=== PATIENT | female | born 1975 | race Hispanic/Latino ===

== ENCOUNTER 2017-10-26 05:51 | Day surgery (SDC) | payer MEDICAID ==
[~2017-10-26 05:51] MED LIST: ANCEF/STERILE WATER 2 GM/20 ML IV NR
[2017-10-26] MEDS ORDERED: NACL BACTERIOSTATIC INFILTRATI ONE (07:00)
--- NOTE | 2017-10-26 07:14 | Anesthesia Consultation ---
Anesthesia Consult and Med Hx Date of service: 10/26/17 - Airway Anesthetic Teeth Evaluation: Poor, Chipped ROM Head & Neck: Adequate Mental/Hyoid Distance: Adequate Mallampati Class: Class II Intubation Access Assessment: Probably Good - Pulmonary Exam CTA: Yes - Cardiac Exam Cardiac Exam: RRR - Pre-Operative Health Status ASA Pre-Surgery Classification: ASA3 Proposed Anesthetic Plan: General - Pulmonary Hx Smoking: Yes (1/2PPD SINCE 1990) Hx Sleep Apnea: No (GUSTAVO PRE SCREEN LOW RISK.) - Cardiovascular System Hx Hypertension: No Hx Cardia Arrhythmia: No - Central Nervous System Hx Back Pain: Yes Hx Psychiatric Problems: Yes (Depression) - Gastrointestinal Hx Gastroesophageal Reflux Disease: Yes (Occasional) - Other Systems Hx Cancer: No
[2017-10-26] MEDS ORDERED: DECADRON IV NR (07:20)
[2017-10-26] MEDS ORDERED: DILAUDID ONE (07:24)
[2017-10-26] MEDS ORDERED: XYLOCAINE MPF 2% ONE (07:24)
[2017-10-26] MEDS ORDERED: DIPRIVAN 10 MG/ML IV ONE (07:25)
[2017-10-26] MEDS ORDERED: REGLAN IV NR (08:00)
[2017-10-26] MEDS ORDERED: NACL 0.9% 1000 ML 1,000 ML IV SCH (08:00)
[2017-10-26] MEDS ORDERED: VERSED IV NR (08:00)
[2017-10-26] MEDS ORDERED: ZOFRAN ONE (08:26)
[2017-10-26] MEDS ORDERED: OMNIPAQUE (300 MG) IR ONE (08:28)
[2017-10-26] MEDS ORDERED: WATER FOR IRRIG STERILE IR ONE ×2 (08:28)
--- NOTE | 2017-10-26 08:55 | Short Stay Summary ---
Short Stay Documentation Date of service: 10/26/17 - History H&P: obtained from office - Allergies and Medications Current Medications: Allergies No Known Allergies Allergy (Verified 10/22/17 10:44) Home Medications Medication Instructions Recorded Confirmed Last Taken Type HYDROcodone/APAP 5-325 [[place] 1 each PO Q6HR PRN #30 tablet 02/05/16 10/22/17 Unknown Rx 5/325] Ondansetron [Zofran TAB] 4 mg PO Q8HR PRN 10/22/17 10/22/17 Unknown History Tamsulosin [Flomax] 0.4 mg PO QDAY 10/22/17 10/26/17 1 Week Ago History ~10/19/17 Oxycodone HCl/Acetaminophen 1 each PO Q6HR PRN 10/26/17 10/26/17 10/25/17 History [Percocet 10/325 mg] Active Medications Cefazolin Sodium (Ancef/Sterile Water 2 Gm/20 Ml) 2 gm IV PREOP NR Stop: 10/26/17 23:00 Dexamethasone (Decadron) 4 mg IV PREOP NR Stop: 10/26/17 11:00 Last Admin: 10/26/17 07:39 Dose: 4 mg Sodium Chloride (Nacl 0.9% 1000 Ml) 1,000 mls @ 42 mls/hr IV DIRECT JUSTIN Last Admin: 10/26/17 07:35 Dose: 42 mls/hr Metoclopramide HCl (Reglan) 10 mg IV PREOP NR Stop: 10/26/17 11:00 Last Admin: 10/26/17 07:37 Dose: 10 mg Midazolam HCl (Versed) 2 mg IV PREOP NR Stop: 10/26/17 23:59 Last Admin: 10/26/17 07:41 Dose: 2 mg - Brief post op/procedure progress note Date of procedure: 10/26/17 Pre-op diagnosis: rt ureteral stone Post-op diagnosis: same Procedure: cysto, rpg, right ureteroscopy, stent with external string Anesthesia: NIKHIL Surgeon: ABAD ROBERSON Estimated blood loss: none Condition: stable - Hospital course Hospital course: norco,cipro, & post op info on chart - Disposition Condition at discharge: Stable Disposition: [id number] TO HOME OR SELFCARE Short Stay Discharge Plan Follow up with: SHENA GOODMAN MD [Primary Care Provider] - 7 Days
[2017-10-26] MEDS ORDERED: NORCO 5/325 PO PRN (09:29)
[2017-10-26] MEDS ORDERED: NORCO 5/325 ONE (09:34)
[2017-10-26 09:37] VITALS: BP 116/61
[2017-10-26] MEDS ORDERED: ZOFRAN IV PRN (09:44)
[2017-10-26] MEDS ORDERED: SUBLIMAZE IV PRN (09:44)
--- NOTE | 2017-10-26 09:44 | Post Anesthesia Evaluation ---
- Post Anesthesia Evaluation Patient Participated: Yes Airway Patent: Yes Stable Respiratory Function: Yes Nausea/Vomiting: No Temp > 96.8F: Yes Pain Manageable: Yes Adequeate Hydration: Yes Anesthesia Complications: No
--- NOTE | 2017-10-26 09:44 | Anesthesia Day of Surgery ---
Anesthesia Day of Surgery - Day of Surgery Patient Examined: Yes Patient H&P Reviewed: Yes Patient is NPO: Yes Beta Blockers: Yes Cardiac Clearance: Yes Pulmonary Clearance: Yes
--- NOTE | 2017-10-26 10:06 | Operative Report ---
PREOPERATIVE DIAGNOSIS: Right distal stone (3 mm) POSTOPERATIVE DIAGNOSIS: Right distal stone (3 mm). PROCEDURE: Cystoscopy, bilateral retrograde pyelograms, right ureteroscopy, double-J stent placement (6 [place] 24 cm with an external string). SURGEON: Jerry Monk MD ANESTHESIA: General. ESTIMATED BLOOD LOSS: Minimal. FLUIDS: Crystalloid. COMPLICATIONS: No complications. INDICATIONS: This patient is a 42-year-old female seen in the office for right flank pain. CT of abdomen and pelvis at [facility] revealed a 3 mm distal stone. She has a family history of stones as well. Initially, we discussed conservative treatment. However, her pain persists. She presents now for surgical intervention. She has a history of removal of ovarian cyst as well. DESCRIPTION OF PROCEDURE: The patient was taken to the operative suite, placed in a supine position. After adequate general anesthesia, placed in a dorsal lithotomy position, prepped and draped in a sterile fashion. Pancystourethroscopy was performed with a 22-[place]ian Storz cystoscope. No bladder pathology. Both ureteral orifices in normal position. Bilateral retrograde pyelograms were obtained with an 8 [place] Shayla catheter and 8 mL of contrast. No filling defects or obstruction on the left. There was some distal narrowing on the right side, prompting further evaluation. Two 0.035 Glidewires were placed. Rigid ureteroscopy was performed up to the renal pelvis. There were some small fragments of stone particles that could be appreciated. They were too small to be retrieved with the basket. Ureteroscopy to the ureteropelvic junction, no significant stone burden could be appreciated. The scope was removed. A 6-[place] 24 cm stent was placed under fluoroscopy with an external string. Her bladder was drained. She was extubated and taken to recovery room. She will go home on [employer] and follow up in the office. JOB# [id number] [facility]
--- NOTE | 2017-10-26 10:23 | Fluoroscopy Report ---
RETROGRADE PYELOGRAM: History: Right ureteral stone. Findings: Fluoroscopy was provided by radiology during retrograde urography by urology. 9 fluoroscopic images were captured by Dr. Monk. There is adequate filling of the ureters and intrarenal collecting systems with no filling defects or anatomic abnormalities identified. The last images demonstrate placement of a right ureteral stent which is in good position on the final image. Impression: Right ureteral stent placement.
== END 2017-10-26 10:40 | disposition home or self-care (01) ==
LOC: OR 05:51
PROVIDERS: ATTEND Urology
DX: I10 Essential (primary) hypertension (principal); N20.0 Calculus of kidney; K21.9 Gastro-esophageal reflux disease without esophagitis; F32.9 Major depressive disorder, single episode, unspecified; F17.210 Nicotine dependence, cigarettes, uncomplicated; Z79.899 Other long term (current) drug therapy
CPT/HCPCS: 52332; 74420; 81025; A4217; C1758; C1769; C2617; J0690; J1100; J1170; J2250; J2405; J2704; J2765; J7030; Q9967

== ENCOUNTER 2017-10-28 19:33 | Inpatient (IN) | payer MEDICAID ==
[2017-10-28] MEDS ORDERED: NACL 0.9% 500 ML 500 ML IV ONE (19:48)
[2017-10-28 20:28] LABS: Hematocrit 42.2 % (30.3-42.9); Mean Corpuscular HGB Conc 33 % (30-34); Mean Corpuscular Hemoglobin 31 pg (28-32); Mean Corpuscular Volume 92 fl (79-97); Platelet Count 270 K/mm3 (140-440); Red Blood Count 4.57 M/mm3 (3.65-5.03); Red Cell Distribution Width 12.8 % (13.2-15.2)
[2017-10-28 20:40] LABS: INR 0.95 (0.87-1.13)
[2017-10-28 20:48] LABS: Alanine Aminotransferase 7 units/L (7-56); Albumin 4.4 g/dL (3.9-5); BUN/Creatinine Ratio 13; Blood Urea Nitrogen 10 mg/dL (7-17); Calcium 9.1 mg/dL (8.4-10.2); Hemolysis Index 2
[2017-10-28 20:59] LABS: Anisocytosis 1+; Basophils % (Manual) 0 % (0.0-1.8); Total Cells Counted 100
[2017-10-28] MEDS ORDERED: TORADOL IV ONE (21:19)
[2017-10-28] MEDS ORDERED: TYLENOL PO ONE (21:19)
[2017-10-28] MEDS ORDERED: DILAUDID IV ONE (21:22)
[2017-10-28] MEDS ORDERED: ZOFRAN IV ONE (21:22)
--- NOTE | 2017-10-28 21:28 | XRay Report ---
FINAL REPORT PROCEDURE: XR CHEST 1V AP TECHNIQUE: Chest radiograph anteroposterior view. CPT 78710 HISTORY: possible Sepsis COMPARISON: No prior studies are available for comparison. FINDINGS: Heart: Normal. Mediastinum/Vessels: Normal. Lungs/Pleural space: Normal. Bony thorax: No acute osseous abnormality. Life support devices: None. IMPRESSION: No acute cardiopulmonary abnormality.
--- NOTE | 2017-10-28 21:37 | Emergency Department Report ---
ED Fever HPI - General Chief Complaint: Fever Stated Complaint: FEVER AFTER SURGERY Time Seen by Provider: 10/28/17 21:16 Source: patient Exam Limitations: no limitations - History of Present Illness Initial Comments: 42 yo female with a past with a history of kidney stones and status post uroscopy with double J stent placement on the right side due to kidney stone on October 26 presents to the hospital with fever started at 6 PM. Patient was discharged on a cardiac pain medicine and ciprofloxacin. She had one episode of vomiting today. She continues to have a/10 right sided abdominal and flank pain as constant, with palpation, and minimally improved with meds. Patient is urinating normally and denies dysuria. Positive persistent hematuria. Urologist Dr. Monk Timing/Duration: this evening Fever Severity/Quality: low grade Fever Therapy [employer]: prescription medications Associated Symptoms: abdominal pain, nausea/vomiting ED Review of Systems ROS: Stated complaint: FEVER AFTER SURGERY Other details as noted in HPI Comment: All other systems reviewed and negative Other: Constitutional: As per HPI Eyes: No eye pain visual changes ENT: No ear pain or throat pain Neck: Denies pain Respiratory: Denies cough wheezing shortness of breath Cardiovascular: Denies chest pain, palpitations, syncope GI: As per HPI : Denies dysuria Musculoskeletal: Right flank pain Skin: Denies rash, lesions, erythema Neurologic: Denies headache, numbness, weakness Psychiatric: Denies suicidal ideation, hallucinations ED Past Medical Hx - Past Medical History Hx Hypertension: No Hx GERD: Yes Hx Kidney Stones: Yes Hx HIV: No - Surgical History Additional Surgical History: uroscopy, ovary removed, d&c - Social History Smoking Status: Current Every Day Smoker Substance Use Type: None - Medications Home Medications: Home Medications Medication Instructions Recorded Confirmed Last Taken Type HYDROcodone/APAP 5-325 [[place] 1 each PO Q6HR PRN #30 tablet 02/05/16 10/22/17 Unknown Rx 5/325] Ondansetron [Zofran TAB] 4 mg PO Q8HR PRN 10/22/17 10/22/17 Unknown History Tamsulosin [Flomax] 0.4 mg PO QDAY 10/22/17 10/26/17 1 Week Ago History ~10/19/17 Oxycodone HCl/Acetaminophen 1 each PO Q6HR PRN 10/26/17 10/26/17 10/25/17 History [Percocet 10/325 mg] ED Physical Exam - General Limitations: No Limitations - Other Other exam information: General: No limitations, moderate distress secondary to pain Head exam: Atraumatic, normocephalic Eyes exam: Normal appearance ENT: Moist mucous membrane, normal oropharynx Neck exam: Normal inspection, full range of motion, no meningismus nontender Respiratory exam: Clear to auscultation bilateral, no wheezes, rales, crackles Cardiovascular: Tachycardic regular rhythm Abdomen: Soft, nondistended, right lower quadrant right-sided abdominal tenderness to palpation. Extremity: Full range of motion normal inspection no deformity Back: Normal Inspection, full range of motion, right flank tenderness Neurologic: Alert, oriented x3, cranial nerves intact, no motor or sensory deficit Psychiatric: normal affect, normal mood Skin: Warm, dry, intact ED Course Vital Signs 10/28/17 10/28/17 10/28/17 19:43 22:09 22:53 Temperature 100.4 F H 99.3 F Pulse Rate 126 H 103 H Respiratory 16 18 16 Rate Blood Pressure 130/74 Blood Pressure 102/64 [Right] O2 Sat by Pulse 96 95 Oximetry - Consultations Consultation #1: 10/28/17 21:[address] Hawley on-call urologist. Recommends IV antibiotics, CT, and admission. We'll consult ED Medical Decision Making - Lab Data Result diagrams: 10/28/17 20:08 10/28/17 20:08 Lab Results 10/28/17 10/28/17 10/28/17 Range/Units 20:08 20:08 20:08 WBC 11.6 H (4.5-11.0) K/mm3 RBC 4.57 (3.65-5.03) M/mm3 Hgb 14.0 (10.1-14.3) gm/dl Hct 42.2 (30.3-42.9) % MCV 92 (79-97) fl MCH 31 (28-32) pg MCHC 33 (30-34) % RDW 12.8 L (13.2-15.2) % Plt Count 270 (140-440) K/mm3 Add Manual Diff Complete Total Counted 100 Seg Neuts % (Manual) 93.0 H (40.0-70.0) % Band Neutrophils % 0 % Lymphocytes % (Manual) 2.0 L (13.4-35.0) % Reactive Lymphs % (Man) 0 % Monocytes % (Manual) 4.0 (0.0-7.3) % Eosinophils % (Manual) 1.0 (0.0-4.3) % Basophils % (Manual) 0 (0.0-1.8) % Metamyelocytes % 0 % Myelocytes % 0 % Promyelocytes % 0 % Blast Cells % 0 % Nucleated RBC % Not Reportable Seg Neutrophils # Man 10.8 H (1.8-7.7) K/mm3 Band Neutrophils # 0.0 K/mm3 Lymphocytes # (Manual) 0.2 L (1.2-5.4) K/mm3 Abs React Lymphs (Man) 0.0 K/mm3 Monocytes # (Manual) 0.5 (0.0-0.8) K/mm3 Eosinophils # (Manual) 0.1 (0.0-0.4) K/mm3 Basophils # (Manual) 0.0 (0.0-0.1) K/mm3 Metamyelocytes # 0.0 K/mm3 Myelocytes # 0.0 K/mm3 Promyelocytes # 0.0 K/mm3 Blast Cells # 0.0 K/mm3 WBC Morphology Not Reportable Hypersegmented Neuts Not Reportable Hyposegmented Neuts Not Reportable Hypogranular Neuts Not Reportable Smudge Cells Not Reportable Toxic Granulation Not Reportable Toxic Vacuolation Not Reportable Dohle Bodies Not Reportable Pelger-Huet Anomaly Not Reportable Marty Rods Not Reportable Platelet Estimate Appears normal Clumped Platelets Not Reportable Plt Clumps, EDTA Not Reportable Large Platelets Not Reportable Giant Platelets Not Reportable Platelet Satelliting Not Reportable Plt Morphology Comment Not Reportable RBC Morphology Not Reportable Dimorphic RBCs Not Reportable Polychromasia Not Reportable Hypochromasia Not Reportable Poikilocytosis Not Reportable Anisocytosis 1+ Microcytosis Not Reportable Macrocytosis Not Reportable Spherocytes Not Reportable Pappenheimer Bodies Not Reportable Sickle Cells Not Reportable Target Cells Not Reportable Tear Drop Cells Not Reportable Ovalocytes Not Reportable Helmet Cells Not Reportable Baumann-[place] Bodies Not Reportable [place] Rings Not Reportable Carey Cells Not Reportable Bite Cells Not Reportable Crenated Cell Not Reportable Elliptocytes Not Reportable Acanthocytes (Spur) Not Reportable Rouleaux Not Reportable Hemoglobin C Crystals Not Reportable Schistocytes Not Reportable Malaria parasites Not Reportable Gino Bodies Not Reportable Hem Pathologist Commnt No PT 13.2 (12.2-14.9) Sec. INR 0.95 (0.87-1.13) VBG pH (7.320-7.420) Sodium 139 (137-145) mmol/L Potassium 4.2 (3.6-5.0) mmol/L Chloride 99.5 (98-107) mmol/L Carbon Dioxide 23 (22-30) mmol/L Anion Gap 21 mmol/L BUN 10 (7-17) mg/dL Creatinine 0.8 (0.7-1.2) mg/dL Estimated GFR > 60 ml/min BUN/Creatinine Ratio 13 % Glucose 115 H (65-100) mg/dL Lactic Acid (0.7-2.0) mmol/L Calcium 9.1 (8.4-10.2) mg/dL Total Bilirubin 0.30 (0.1-1.2) mg/dL AST 10 (5-40) units/L ALT 7 (7-56) units/L Alkaline Phosphatase 83 (35-129) units/L Total Protein 7.1 (6.3-8.2) g/dL Albumin 4.4 (3.9-5) g/dL Albumin/Globulin Ratio 1.6 % Urine Color (Yellow) Urine Turbidity (Clear) Urine pH (5.0-7.0) Ur Specific [place] (1.003-1.030) Urine Protein (Negative) mg/dL Urine Glucose (UA) (Negative) mg/dL Urine Ketones (Negative) mg/dL Urine Blood (Negative) Urine Nitrite (Negative) Urine Bilirubin (Negative) Urine Urobilinogen (<2.0) mg/dL Ur Leukocyte Esterase (Negative) Urine WBC (Auto) (0.0-6.0) /HPF Urine RBC (Auto) (0.0-6.0) /HPF U Epithel Cells (Auto) (0-13.0) /HPF Urine Mucus /HPF Urine HCG, Qual (Negative) 10/28/17 10/28/17 10/28/17 Range/Units 20:08 20:08 20:55 WBC (4.5-11.0) K/mm3 RBC (3.65-5.03) M/mm3 Hgb (10.1-14.3) gm/dl Hct (30.3-42.9) % MCV (79-97) fl MCH (28-32) pg MCHC (30-34) % RDW (13.2-15.2) % Plt Count (140-440) K/mm3 Add Manual Diff Total Counted Seg Neuts % (Manual) (40.0-70.0) % Band Neutrophils % % Lymphocytes % (Manual) (13.4-35.0) % Reactive Lymphs % (Man) % Monocytes % (Manual) (0.0-7.3) % Eosinophils % (Manual) (0.0-4.3) % Basophils % (Manual) (0.0-1.8) % Metamyelocytes % % Myelocytes % % Promyelocytes % % Blast Cells % % Nucleated RBC % Seg Neutrophils # Man (1.8-7.7) K/mm3 Band Neutrophils # K/mm3 Lymphocytes # (Manual) (1.2-5.4) K/mm3 Abs React Lymphs (Man) K/mm3 Monocytes # (Manual) (0.0-0.8) K/mm3 Eosinophils # (Manual) (0.0-0.4) K/mm3 Basophils # (Manual) (0.0-0.1) K/mm3 Metamyelocytes # K/mm3 Myelocytes # K/mm3 Promyelocytes # K/mm3 Blast Cells # K/mm3 WBC Morphology Hypersegmented Neuts Hyposegmented Neuts Hypogranular Neuts Smudge Cells Toxic Granulation Toxic Vacuolation Dohle Bodies Pelger-Huet Anomaly Marty Rods Platelet Estimate Clumped Platelets Plt Clumps, EDTA Large Platelets Giant Platelets Platelet Satelliting Plt Morphology Comment RBC Morphology Dimorphic RBCs Polychromasia Hypochromasia Poikilocytosis Anisocytosis Microcytosis Macrocytosis Spherocytes Pappenheimer Bodies Sickle Cells Target Cells Tear Drop Cells Ovalocytes Helmet Cells Baumann-[place] Bodies [place] Rings [place] Cells Bite Cells Crenated Cell Elliptocytes Acanthocytes (Spur) Rouleaux Hemoglobin C Crystals Schistocytes Malaria parasites Gino Bodies Hem Pathologist Commnt PT (12.2-14.9) Sec. INR (0.87-1.13) VBG pH 7.399 (7.320-7.420) Sodium (137-145) mmol/L Potassium (3.6-5.0) mmol/L Chloride (98-107) mmol/L Carbon Dioxide (22-30) mmol/L Anion Gap mmol/L BUN (7-17) mg/dL Creatinine (0.7-1.2) mg/dL Estimated GFR ml/min BUN/Creatinine Ratio % Glucose (65-100) mg/dL Lactic Acid 1.30 (0.7-2.0) mmol/L Calcium (8.4-10.2) mg/dL Total Bilirubin (0.1-1.2) mg/dL AST (5-40) units/L ALT (7-56) units/L Alkaline Phosphatase (35-129) units/L Total Protein (6.3-8.2) g/dL Albumin (3.9-5) g/dL Albumin/Globulin Ratio % Urine Color Red (Yellow) Urine Turbidity Clear (Clear) Urine pH 7.0 (5.0-7.0) Ur Specific [place] 1.017 (1.003-1.030) Urine Protein 100 mg/dl (Negative) mg/dL Urine Glucose (UA) Neg (Negative) mg/dL Urine Ketones Neg (Negative) mg/dL Urine Blood Lg (Negative) Urine Nitrite Neg (Negative) Urine Bilirubin Neg (Negative) Urine Urobilinogen < 2.0 (<2.0) mg/dL Ur Leukocyte Esterase Sm (Negative) Urine WBC (Auto) 6.0 (0.0-6.0) /HPF Urine RBC (Auto) > 182.0 (0.0-6.0) /HPF U Epithel Cells (Auto) 4.0 (0-13.0) /HPF Urine Mucus 2+ /HPF Urine HCG, Qual (Negative) 10/28/17 Range/Units 21:30 WBC (4.5-11.0) K/mm3 RBC (3.65-5.03) M/mm3 Hgb (10.1-14.3) gm/dl Hct (30.3-42.9) % MCV (79-97) fl MCH (28-32) pg MCHC (30-34) % RDW (13.2-15.2) % Plt Count (140-440) K/mm3 Add Manual Diff Total Counted Seg Neuts % (Manual) (40.0-70.0) % Band Neutrophils % % Lymphocytes % (Manual) (13.4-35.0) % Reactive Lymphs % (Man) % Monocytes % (Manual) (0.0-7.3) % Eosinophils % (Manual) (0.0-4.3) % Basophils % (Manual) (0.0-1.8) % Metamyelocytes % % Myelocytes % % Promyelocytes % % Blast Cells % % Nucleated RBC % Seg Neutrophils # Man (1.8-7.7) K/mm3 Band Neutrophils # K/mm3 Lymphocytes # (Manual) (1.2-5.4) K/mm3 Abs React Lymphs (Man) K/mm3 Monocytes # (Manual) (0.0-0.8) K/mm3 Eosinophils # (Manual) (0.0-0.4) K/mm3 Basophils # (Manual) (0.0-0.1) K/mm3 Metamyelocytes # K/mm3 Myelocytes # K/mm3 Promyelocytes # K/mm3 Blast Cells # K/mm3 WBC Morphology Hypersegmented Neuts Hyposegmented Neuts Hypogranular Neuts Smudge Cells Toxic Granulation Toxic Vacuolation Dohle Bodies Pelger-Huet Anomaly Marty Rods Platelet Estimate Clumped Platelets Plt Clumps, EDTA Large Platelets Giant Platelets Platelet Satelliting Plt Morphology Comment RBC Morphology Dimorphic RBCs Polychromasia Hypochromasia Poikilocytosis Anisocytosis Microcytosis Macrocytosis Spherocytes Pappenheimer Bodies Sickle Cells Target Cells Tear Drop Cells Ovalocytes Helmet Cells Baumann-[place] Bodies [place] Rings Carey Cells Bite Cells Crenated Cell Elliptocytes Acanthocytes (Spur) Rouleaux Hemoglobin C Crystals Schistocytes Malaria parasites Gino Bodies Hem Pathologist Commnt PT (12.2-14.9) Sec. INR (0.87-1.13) VBG pH (7.320-7.420) Sodium (137-145) mmol/L Potassium (3.6-5.0) mmol/L Chloride (98-107) mmol/L Carbon Dioxide (22-30) mmol/L Anion Gap mmol/L BUN (7-17) mg/dL Creatinine (0.7-1.2) mg/dL Estimated GFR ml/min BUN/Creatinine Ratio % Glucose (65-100) mg/dL Lactic Acid (0.7-2.0) mmol/L Calcium (8.4-10.2) mg/dL Total Bilirubin (0.1-1.2) mg/dL AST (5-40) units/L ALT (7-56) units/L Alkaline Phosphatase (35-129) units/L Total Protein (6.3-8.2) g/dL Albumin (3.9-5) g/dL Albumin/Globulin Ratio % Urine Color (Yellow) Urine Turbidity (Clear) Urine pH (5.0-7.0) Ur Specific [place] (1.003-1.030) Urine Protein (Negative) mg/dL Urine Glucose (UA) (Negative) mg/dL Urine Ketones (Negative) mg/dL Urine Blood (Negative) Urine Nitrite (Negative) Urine Bilirubin (Negative) Urine Urobilinogen (<2.0) mg/dL Ur Leukocyte Esterase (Negative) Urine WBC (Auto) (0.0-6.0) /HPF Urine RBC (Auto) (0.0-6.0) /HPF U Epithel Cells (Auto) (0-13.0) /HPF Urine Mucus /HPF Urine HCG, Qual Negative (Negative) - Radiology Data Radiology results: report reviewed Read by radiologist: Chest x-ray: No acute findings A CT of the pelvis noncontrast: Right ureteral stent in proper position. Moderate residual hydronephrosis. No uteral stone identified. Cyst or cystic mass in the left ovary measured 3.8 cm - Medical Decision Making Postop fever Chest x-ray negative Initial UA negative for infection Patient currently Zosyn Cultures pending Treated symptomatically for pain Urology consulted Hospitalist informed - Differential Diagnosis UTI, pyelonephritis, postop infection Critical Care Time: No Critical care attestation.: If time is entered above; I have spent that time in minutes in the direct care of this critically ill patient, excluding procedure time. ED Disposition Clinical Impression: Postoperative fever, Retained ureteral stent, Recurrent kidney stones Disposition: OP ADMIT IP TO THIS HOSP Is pt being admited?: Yes Condition: Stable Time of Disposition: 23:01 (Dr Bruce/hosp)
[2017-10-28] MEDS ORDERED: ZOSYN/NS 4.5GM/100ML 4.5 GM/100 ML VIAL IV ONE (22:00)
[2017-10-28 22:05] LABS: HCG Qualitative,Urine Negative (Negative)
--- NOTE | 2017-10-28 22:32 | Cat Scan Report ---
FINAL REPORT PROCEDURE: CT ABDOMEN PELVIS WO CON TECHNIQUE: Computerized axial tomography of the abdomen and pelvis was performed without intravenous contrast. This study is performed without intravascular contrast material and its sensitivity for abdominal and pelvic pathology, including neoplasms, inflammation, abscess, free fluid, thrombosis, arterial dissection and infarction, is reduced compared with a contrast enhanced study. HISTORY: recent uteral stent, + fever COMPARISON: No prior studies are available for comparison. FINDINGS: Visualized lower thorax: No significant abnormality. Liver: Normal size and attenuation. Spleen: Normal size and attenuation. Gallbladder and biliary system: Normal. Pancreas: Normal. Adrenals: Normal. Kidneys: There is a right ureteral stent in proper position. There is moderate residual right hydronephrosis. No ureteral stone is identified. Left kidney and ureter are unremarkable.. GI tract: There is no bowel obstruction, colitis or enteritis. The appendix is normal.. Lymph nodes and mesentery: Normal. Vasculature: Normal. Bladder: Normal. Reproductive organs: Uterus is unremarkable. There is a cyst or cystic mass in the left ovary measuring 3.8 centimeters.. Peritoneum: There is no ascites or free air, abscess or adenopathy.. Musculoskeletal structures: No significant abnormality. Other: None. IMPRESSION: There is a right ureteral stent in proper position. There is moderate residual right hydronephrosis. No ureteral stone is identified. Left kidney and ureter are unremarkable.. There is no bowel obstruction, colitis or enteritis. The appendix is normal.. Uterus is unremarkable. There is a cyst or cystic mass in the left ovary measuring 3.8 centimeters.. There is no ascites or free air, abscess or adenopathy. .
[2017-10-28 22:35] LABS: Bilirubin,Urine NEG (Negative); Blood,Urine LG (Negative); Color,Urine Red (Yellow); Mucus,Urine 2+ /HPF; Nitrite,Urine NEG (Negative); RBC,Urine > 182.0 /HPF (0.0-6.0); Urobilinogen,Urine < 2.0 mg/dL (<2.0)
[2017-10-28] MEDS ORDERED: NON-FORMULARY (Oxycodone Hcl/Acetaminophen [Percocet 10/325 Mg] 1 EACH) PO PRN (22:54)
[2017-10-28] MEDS ORDERED: ZOFRAN IV PRN ×2 (22:55→22:56)
[2017-10-28] MEDS ORDERED: DULCOLAX PR PRN (22:56)
[2017-10-28] MEDS ORDERED: MILK OF MAGNESIA PO PRN (22:56)
[2017-10-28] MEDS ORDERED: HEPARIN SUB-Q SCH (23:00)
--- NOTE | 2017-10-28 23:00 | History and Physical Report ---
History of Present Illness Date of examination: 10/28/17 Chief complaint: Fever History of present illness: 42-year-old female with past medical history significant for right ureteric stone presented to the emergency department complaining of right-sided flank pain that started yesterday. The patient said that the pain is sharp sometimes dull, rating 9 out of 10 in intensity with no radiation. The patient' s getting better by lying still worse by any movement. Patient has fever of 102.8, associated with nausea, vomiting, and hematuria. Patient had ureteroscopy and stent placement on the right ureter by Dr. Monk recently. Patient denied fever, chills, dysuria, urgency or frequency. REVIEW OF SYSTEMS: GENERAL: no weight change, no fatigue, +fever HEAD: no head ache EYES: no blurry vision, no acute visual loss EARS: no hearing loss, no discharge, no earache NOSE: no stuffiness, no sneezing, no discharge MOUTH, THROAT AND NECK: no bleeding gums, no sore throat, no swollen neck CARDIAC: no palpitations, no dyspnea on exertion, no orthopnea, no PND, no edema , no chest pain RESPIRATORY: no shortness of breath, no wheeze, no cough, no sputum, no hemoptysis, no asthma GI: as stated in the HPI. URINARY: no change in frequency, no urgency, no polyuria, + hematuria, no incontinence MUSCULOSKELETAL: no muscle weakness, no pain, no joint stiffness NEUROLOGIC: no loss of sensation/numbness, no tingling, no tremors, no weakness/ paralysis HEMATOLOGIC: no anemia, no easy bruising SKIN: no rashes ENDOCRINE: no heat/cold intolerance, no polyuria, no polydipsia, no thyroid problems, no diabetes PSYCHIATRIC: no anxiety, no depression, no suicidal ideations Past History Past Medical History: other (ureteral stone) Past Surgical History: Other (ureteroscopy with stent placement) Social history: smoking (1/2 ppd), full code. denies: alcohol abuse, prescription drug abuse, IV drug use Family history: no significant family history Medications and Allergies Allergies Allergy/AdvReac Type Severity Reaction Status Date / Time No Known Allergies Allergy Verified 10/28/17 19:43 Home Medications Medication Instructions Recorded Confirmed Last Taken Type HYDROcodone/APAP 5-325 [[place] 1 each PO Q6HR PRN #30 tablet 02/05/16 10/22/17 Unknown Rx 5/325] Ondansetron [Zofran TAB] 4 mg PO Q8HR PRN 10/22/17 10/22/17 Unknown History Tamsulosin [Flomax] 0.4 mg PO QDAY 10/22/17 10/26/17 1 Week Ago History ~10/19/17 Oxycodone HCl/Acetaminophen 1 each PO Q6HR PRN 10/26/17 10/26/17 10/25/17 History [Percocet 10/325 mg] Active Meds: Active Medications Acetaminophen (Tylenol) 650 mg PO Q4H PRN PRN Reason: Pain MILD(1-3)/Fever >100.5/STEVENSON Bisacodyl (Dulcolax) 10 mg IN QDAY PRN PRN Reason: Constipation unrelieved by [facility] Heparin Sodium (Porcine) (Heparin) 5,000 unit SUB-Q Q8H JUSTIN Piperacillin Sod/Tazobactam Sod (Zosyn/Ns 3.375gm/50ml) 3.375 gm in 50 mls @ 100 mls/hr IV Q8HR JUSTIN PRN Reason: Protocol Magnesium Hydroxide (Milk Of Magnesia) 30 ml PO Q4H PRN PRN Reason: Constipation Miscellaneous Medication (Oxycodone Hcl/Acetaminophen [Percocet 10/325 Mg]) 1 each PO Q6HR PRN PRN Reason: Pain Ondansetron HCl (Zofran) 4 mg IV Q8H PRN PRN Reason: N/V unrelieved by Reglan Ondansetron HCl (Zofran) 4 mg IV Q8H PRN PRN Reason: N/V unrelieved by Reglan Exam - Physical Exam Narrative exam: Not in cardiopulmonary distress. The patient appeared well nourished and normally developed. Vital signs as documented. Head exam is unremarkable. No scleral icterus . Neck is without jugular venous distension, thyromegaly, or carotid bruits. Lungs are clear to auscultation. Cardiac exam reveals regular rate and Rhythm. First and second heart sounds normal. No murmurs, rubs or gallops. Abdominal exam reveals mild right flank tenderness. Extremities are nonedematous and both femoral and pedal pulses are normal. SURGICAL TRAINING SPECIALIST: Alert and oriented 3. No focal weakness. - Constitutional Vitals: Temp Pulse Resp BP Pulse Ox 99.3 F 103 H 16 102/64 95 10/28/17 22:53 10/28/17 22:53 10/28/17 22:53 10/28/17 22:53 10/28/17 22:53 Results - Labs CBC & Chem 7: 10/28/17 20:08 10/28/17 20:08 Labs: Laboratory Last Values WBC 11.6 K/mm3 (4.5-11.0) H 10/28/17 20:08 RBC 4.57 M/mm3 (3.65-5.03) 10/28/17 20:08 Hgb 14.0 gm/dl (10.1-14.3) 10/28/17 20:08 Hct 42.2 % (30.3-42.9) 10/28/17 20:08 MCV 92 fl (79-97) 10/28/17 20:08 MCH 31 pg (28-32) 10/28/17 20:08 MCHC 33 % (30-34) 10/28/17 20:08 RDW 12.8 % (13.2-15.2) L 10/28/17 20:08 Plt Count 270 K/mm3 (140-440) 10/28/17 20:08 Add Manual Diff Complete 10/28/17 20:08 Total Counted 100 10/28/17 20:08 Seg Neuts % (Manual) 93.0 % (40.0-70.0) H 10/28/17 20:08 Band Neutrophils % 0 % 10/28/17 20:08 Lymphocytes % (Manual) 2.0 % (13.4-35.0) L 10/28/17 20:08 Reactive Lymphs % (Man) 0 % 10/28/17 20:08 Monocytes % (Manual) 4.0 % (0.0-7.3) 10/28/17 20:08 Eosinophils % (Manual) 1.0 % (0.0-4.3) 10/28/17 20:08 Basophils % (Manual) 0 % (0.0-1.8) 10/28/17 20:08 Metamyelocytes % 0 % 10/28/17 20:08 Myelocytes % 0 % 10/28/17 20:08 Promyelocytes % 0 % 10/28/17 20:08 Blast Cells % 0 % 10/28/17 20:08 Nucleated RBC % Not Reportable 10/28/17 20:08 Seg Neutrophils # Man 10.8 K/mm3 (1.8-7.7) H 10/28/17 20:08 Band Neutrophils # 0.0 K/mm3 10/28/17 20:08 Lymphocytes # (Manual) 0.2 K/mm3 (1.2-5.4) L 10/28/17 20:08 Abs React Lymphs (Man) 0.0 K/mm3 10/28/17 20:08 Monocytes # (Manual) 0.5 K/mm3 (0.0-0.8) 10/28/17 20:08 Eosinophils # (Manual) 0.1 K/mm3 (0.0-0.4) 10/28/17 20:08 Basophils # (Manual) 0.0 K/mm3 (0.0-0.1) 10/28/17 20:08 Metamyelocytes # 0.0 K/mm3 10/28/17 20:08 Myelocytes # 0.0 K/mm3 10/28/17 20:08 Promyelocytes # 0.0 K/mm3 10/28/17 20:08 Blast Cells # 0.0 K/mm3 10/28/17 20:08 WBC Morphology Not Reportable 10/28/17 20:08 Hypersegmented Neuts Not Reportable 10/28/17 20:08 Hyposegmented Neuts Not Reportable 10/28/17 20:08 Hypogranular Neuts Not Reportable 10/28/17 20:08 Smudge Cells Not Reportable 10/28/17 20:08 Toxic Granulation Not Reportable 10/28/17 20:08 Toxic Vacuolation Not Reportable 10/28/17 20:08 Dohle Bodies Not Reportable 10/28/17 20:08 Pelger-Huet Anomaly Not Reportable 10/28/17 20:08 Marty Rods Not Reportable 10/28/17 20:08 Platelet Estimate Appears normal 10/28/17 20:08 Clumped Platelets Not Reportable 10/28/17 20:08 Plt Clumps, EDTA Not Reportable 10/28/17 20:08 Large Platelets Not Reportable 10/28/17 20:08 Giant Platelets Not Reportable 10/28/17 20:08 Platelet Satelliting Not Reportable 10/28/17 20:08 Plt Morphology Comment Not Reportable 10/28/17 20:08 RBC Morphology Not Reportable 10/28/17 20:08 Dimorphic RBCs Not Reportable 10/28/17 20:08 Polychromasia Not Reportable 10/28/17 20:08 Hypochromasia Not Reportable 10/28/17 20:08 Poikilocytosis Not Reportable 10/28/17 20:08 Anisocytosis 1+ 10/28/17 20:08 Microcytosis Not Reportable 10/28/17 20:08 Macrocytosis Not Reportable 10/28/17 20:08 Spherocytes Not Reportable 10/28/17 20:08 Pappenheimer Bodies Not Reportable 10/28/17 20:08 Sickle Cells Not Reportable 10/28/17 20:08 Target Cells Not Reportable 10/28/17 20:08 Tear Drop Cells Not Reportable 10/28/17 20:08 Ovalocytes Not Reportable 10/28/17 20:08 Helmet Cells Not Reportable 10/28/17 20:08 Baumann-Mckenzie Bodies Not Reportable 10/28/17 20:08 [place] Rings Not Reportable 10/28/17 20:08 Carey Cells Not Reportable 10/28/17 20:08 Bite Cells Not Reportable 10/28/17 20:08 Crenated Cell Not Reportable 10/28/17 20:08 Elliptocytes Not Reportable 10/28/17 20:08 Acanthocytes (Spur) Not Reportable 10/28/17 20:08 Rouleaux Not Reportable 10/28/17 20:08 Hemoglobin C Crystals Not Reportable 10/28/17 20:08 Schistocytes Not Reportable 10/28/17 20:08 Malaria parasites Not Reportable 10/28/17 20:08 Gino Bodies Not Reportable 10/28/17 20:08 Hem Pathologist Commnt No 10/28/17 20:08 PT 13.2 Sec. (12.2-14.9) 10/28/17 20:08 INR 0.95 (0.87-1.13) 10/28/17 20:08 VBG pH 7.399 (7.320-7.420) 10/28/17 20:08 Sodium 139 mmol/L (137-145) 10/28/17 20:08 Potassium 4.2 mmol/L (3.6-5.0) 10/28/17 20:08 Chloride 99.5 mmol/L (98-107) 10/28/17 20:08 Carbon Dioxide 23 mmol/L (22-30) 10/28/17 20:08 Anion Gap 21 mmol/L 10/28/17 20:08 BUN 10 mg/dL (7-17) 10/28/17 20:08 Creatinine 0.8 mg/dL (0.7-1.2) 10/28/17 20:08 Estimated GFR > 60 ml/min 10/28/17 20:08 BUN/Creatinine Ratio 13 % 10/28/17 20:08 Glucose 115 mg/dL (65-100) H 10/28/17 20:08 Lactic Acid 1.30 mmol/L (0.7-2.0) 10/28/17 20:08 Calcium 9.1 mg/dL (8.4-10.2) 10/28/17 20:08 Total Bilirubin 0.30 mg/dL (0.1-1.2) 10/28/17 20:08 AST 10 units/L (5-40) 10/28/17 20:08 ALT 7 units/L (7-56) 10/28/17 20:08 Alkaline Phosphatase 83 units/L (35-129) 10/28/17 20:08 Total Protein 7.1 g/dL (6.3-8.2) 10/28/17 20:08 Albumin 4.4 g/dL (3.9-5) 10/28/17 20:08 Albumin/Globulin Ratio 1.6 % 10/28/17 20:08 Urine Color Red (Yellow) 10/28/17 20:55 Urine Turbidity Clear (Clear) 10/28/17 20:55 Urine pH 7.0 (5.0-7.0) 10/28/17 20:55 Ur Specific [place] 1.017 (1.003-1.030) 10/28/17 20:55 Urine Protein 100 mg/dl mg/dL (Negative) 10/28/17 20:55 Urine Glucose (UA) Neg mg/dL (Negative) 10/28/17 20:55 Urine Ketones Neg mg/dL (Negative) 10/28/17 20:55 Urine Blood Lg (Negative) 10/28/17 20:55 Urine Nitrite Neg (Negative) 10/28/17 20:55 Urine Bilirubin Neg (Negative) 10/28/17 20:55 Urine Urobilinogen < 2.0 mg/dL (<2.0) 10/28/17 20:55 Ur Leukocyte Esterase Sm (Negative) 10/28/17 20:55 Urine WBC (Auto) 6.0 /HPF (0.0-6.0) 10/28/17 20:55 Urine RBC (Auto) > 182.0 /HPF (0.0-6.0) 10/28/17 20:55 U Epithel Cells (Auto) 4.0 /HPF (0-13.0) 10/28/17 20:55 Urine Mucus 2+ /HPF 10/28/17 20:55 Urine HCG, Qual Negative (Negative) 10/28/17 21:30 - Imaging and Cardiology CT scan - abdomen: report reviewed (Right hydronephrosis) Assessment and Plan Assessment and plan: Right sided flank pain, with right sided hydronephrosis, Recent stone removal and stent placement in the right ureter SIRS evidenced by fever and tachycardia Active tobacco use - Urology consulted by ER doctor and recommended to put the patient on IV Zosyn and will evaluate in the morning - Pain control, also about cessation of tobacco use, IV fluids DVT prophylaxis - On heparin Disposition - Admit to medical floor. Advance Directives: Yes VTE prophylaxis?: Mechanical Contraindication Mechanical VTE Prophylaxis: Contraindicated Reason for no VTE Prophylaxis: Bleeding Plan of care discussed with patient/family: Yes
[2017-10-28] MEDS ORDERED: PERCOCET 5/325 PO PRN (23:30)
[2017-10-28] MEDS ORDERED: ROXICODONE PO PRN (23:31)
[2017-10-29] MEDS ORDERED: ZOSYN/NS 3.375GM/50ML 3.375 GM/50 ML BAG IV SCH (06:00)
[2017-10-29 06:21] LABS: Basophils % (Auto) 0.4 % (0.0-1.8); Eosinophils % (Auto) 0.1 % (0.0-4.3); Hematocrit 37.6 % (30.3-42.9); Hemoglobin 12.4 gm/dl (10.1-14.3); Lymphocytes # (Auto) 1.7 K/mm3 (1.2-5.4); Lymphocytes % (Auto) 23.3 % (13.4-35.0); Mean Corpuscular HGB Conc 33 % (30-34); Mean Corpuscular Hemoglobin 31 pg (28-32); Mean Corpuscular Volume 93 fl (79-97); Monocytes # (Auto) 0.9 K/mm3 (0.0-0.8); Monocytes % (Auto) 12.4 % (0.0-7.3); Platelet Count 216 K/mm3 (140-440); Red Blood Count 4.02 M/mm3 (3.65-5.03); Red Cell Distribution Width 12.6 % (13.2-15.2)
[2017-10-29 06:39] LABS: BUN/Creatinine Ratio 15; Blood Urea Nitrogen 12 mg/dL (7-17); Calcium 8.3 mg/dL (8.4-10.2); Hemolysis Index 7
[2017-10-29] MEDS: TYLENOL PO PRN ×2 (10:51→17:20)
[2017-10-29] MEDS: ZOSYN/NS 4.5GM/100ML 4.5 GM/100 ML VIAL IV SCH ×2 (13:26→22:20)
--- NOTE | 2017-10-29 15:22 | Progress Note ---
Assessment and Plan Right sided flank pain, with right sided hydronephrosis, - Recent stone removal and stent placement in the right ureter - spoke with dr. Monk, Medical Mx for now with abx and iv fluid SIRS evidenced by fever and tachycardia - will cont on abx as she had recent procedure Active tobacco use - encouraged cessation of tobacco use, DVT prophylaxis - SCD Disposition - home when stable. Brief history: 42-year-old female with past medical history significant for right ureteric stone s/p ureteroscopy and stent placement on the right ureter by Dr. Monk recently presented to the emergency department complaining of right- sided flank pain that started yesterday. Patient had fever of 102.8, associated with nausea, vomiting, and hematuria. Radiological test: CT abdomen/pelvis - patent right ureteric stent, no stone, moderate right hydronephrosis Hospitalist Physical exam: GENERAL: well-developed and well-nourished WF lying on bed appeared to be in no discomfort. HEENT: Normocephalic. Atraumatic. No conjunctival congestion or icterus. Patient has moist mucous membranes. NECK: Supple. Trachea midline. CHEST/LUNGS: Clear to auscultated bilaterally, breathing nonlabored. No wheezes crackles or rhonchi. HEART/CARDIOVASCULAR: Regular in rate and rhythm. S1 and S2 positive. ABDOMEN: Abdomen is soft, right flank tenderness. Patient has normal bowel sounds. SKIN: There is no rash. Warm and dry. NEURO: No focal motor deficit. Follows command. MUSCULOSKELETAL: No joint effusion or tenderness. EXTRIMITY: No edema, no cyanosis or clubbing. PSYCH: Cooperative. Subjective Date of service: 10/29/17 Interval history: Pt seen and examined c/o right flank pain and hematurea Wants to eat, no N/V Objective - Constitutional Vitals: Vital Signs - 12hr 10/29/17 08:10 Temperature 99.2 F Pulse Rate 89 Respiratory 20 Rate Blood Pressure 128/75 O2 Sat by Pulse 96 Oximetry - Labs CBC & Chem 7: 10/29/17 05:10 10/29/17 05:10 Labs: Abnormal lab results 10/28/17 10/28/17 10/29/17 Range/Units 20:08 20:08 05:10 WBC 11.6 H (4.5-11.0) K/mm3 RDW 12.8 L 12.6 L (13.2-15.2) % [place] % (Auto) 12.4 H (0.0-7.3) % [place] # 0.9 H (0.0-0.8) K/mm3 Seg Neuts % (Manual) 93.0 H (40.0-70.0) % Lymphocytes % (Manual) 2.0 L (13.4-35.0) % Seg Neutrophils # Man 10.8 H (1.8-7.7) K/mm3 Lymphocytes # (Manual) 0.2 L (1.2-5.4) K/mm3 Glucose 115 H (65-100) mg/dL Calcium (8.4-10.2) mg/dL 10/29/17 Range/Units 05:10 WBC (4.5-11.0) K/mm3 RDW (13.2-15.2) % [place] % (Auto) (0.0-7.3) % [place] # (0.0-0.8) K/mm3 Seg Neuts % (Manual) (40.0-70.0) % Lymphocytes % (Manual) (13.4-35.0) % Seg Neutrophils # Man (1.8-7.7) K/mm3 Lymphocytes # (Manual) (1.2-5.4) K/mm3 Glucose (65-100) mg/dL Calcium 8.3 L (8.4-10.2) mg/dL
[2017-10-30] MEDS: ZOSYN/NS 4.5GM/100ML 4.5 GM/100 ML VIAL IV SCH ×2 (06:17→14:21)
--- NOTE | 2017-10-30 12:54 | Consultation ---
History of Present Illness - Reason for Consult Consult date: 10/30/17 - History of Present Illness 42 yo female with a past with a history of kidney stones and status post uroscopy with double J stent placement on the right side due to kidney stone on October 26 presents to the hospital with fever started at 6 PM. Patient was discharged on pain medicine and ciprofloxacin. She had one episode of vomiting today. She continues to have right sided abdominal and flank pain as constant, with palpation, and minimally improved with meds. Patient is urinating normally and denies dysuria. Positive persistent hematuria. CTAP - hydro & stent - rt-----normal for what was done A/P conservative therapy Past History Past Medical History: other (ureteral stone) Past Surgical History: Other (ureteroscopy with stent placement) Social history: smoking (1/2 ppd), full code. denies: alcohol abuse, prescription drug abuse, IV drug use Family history: no significant family history Medications and Allergies Allergies Allergy/AdvReac Type Severity Reaction Status Date / Time No Known Allergies Allergy Verified 10/28/17 19:43 Home Medications Medication Instructions Recorded Confirmed Last Taken Type Ondansetron [Zofran TAB] 4 mg PO Q8HR PRN 10/22/17 10/29/17 10/28/17 History Oxycodone HCl/Acetaminophen 1 each PO Q6HR PRN 10/26/17 10/29/17 10/28/17 History [Percocet 10/325 mg] Active Meds: Active Medications Acetaminophen (Tylenol) 650 mg PO Q4H PRN PRN Reason: Pain MILD(1-3)/Fever >100.5/STEVENSON Last Admin: 10/29/17 17:20 Dose: 650 mg Bisacodyl (Dulcolax) 10 mg MO QDAY PRN PRN Reason: Constipation unrelieved by MOM Piperacillin Sod/Tazobactam Sod (Zosyn/Ns 4.5gm/100ml) 4.5 gm in 100 mls @ 200 mls/hr IV Q8HR JUSTIN Last Admin: 10/30/17 06:17 Dose: 200 mls/hr Magnesium Hydroxide (Milk Of Magnesia) 30 ml PO Q4H PRN PRN Reason: Constipation Ondansetron HCl (Zofran) 4 mg IV Q8H PRN PRN Reason: N/V unrelieved by Reglan Oxycodone HCl (Roxicodone) 5 mg PO Q6H PRN PRN Reason: Pain Oxycodone/Acetaminophen (Percocet 5/325) 1 tab PO Q6H PRN PRN Reason: Pain Exam - Constitutional Vitals: Temp Pulse Resp BP Pulse Ox 99.8 F H 84 18 110/67 95 10/30/17 07:38 10/30/17 07:38 10/30/17 12:24 10/30/17 07:38 10/30/17 07:38 Results - Labs CBC & Chem 7: 10/29/17 05:10 10/29/17 05:10
--- NOTE | 2017-10-30 13:17 | Discharge Summary ---
Providers - Providers Date of Admission: 10/28/17 22:56 Date of discharge: 10/30/17 Attending physician: MYA DORSEY 10/29/17 03:08 Consult to Physician [CONS] Routine Consulting Provider: PATRICIO VELIZ Reason For Exam: right sided flank pain Place consult to:: urology Notified:: DR. Condon Was contact made?: Yes If yes, spoke with:: ER doc talked with Dr Veliz Primary care physician: SYD ASENCIO Hospitalization Condition: Stable Hospital course: Brief history: 42-year-old female with past medical history significant for right ureteric stone s/p ureteroscopy and stent placement on the right ureter by Dr. Monk recently presented to the emergency department complaining of right- sided flank pain that started yesterday. Patient had fever of 102.8, associated with nausea, vomiting, and hematuria. She was admitted for further evaluation and management. Discharge diagnosis and management: Right sided flank pain, with right sided hydronephrosis, - Recent stone removal and stent placement in the right ureter - spoke with dr. Monk, continued Medical Mx with abx and iv fluid - CT abdomen and pelvis showed patent stent SIRS evidenced by fever and tachycardia - Placed on abx as she had recent procedure - blood cx , urine cx negative ( No sepsis as no source of infection found) Active tobacco use - encouraged cessation of tobacco use, DVT prophylaxis - SCD Disposition - home Radiological test: CT abdomen/pelvis - patent right ureteric stent, no stone, moderate right hydronephrosis Hospitalist Physical exam: GENERAL: well-developed and well-nourished WF lying on bed appeared to be in no discomfort. HEENT: Normocephalic. Atraumatic. No conjunctival congestion or icterus. Patient has moist mucous membranes. NECK: Supple. Trachea midline. CHEST/LUNGS: Clear to auscultated bilaterally, breathing nonlabored. No wheezes crackles or rhonchi. HEART/CARDIOVASCULAR: Regular in rate and rhythm. S1 and S2 positive. ABDOMEN: Abdomen is soft, right flank tenderness. Patient has normal bowel sounds. SKIN: There is no rash. Warm and dry. NEURO: No focal motor deficit. Follows command. MUSCULOSKELETAL: No joint effusion or tenderness. EXTRIMITY: No edema, no cyanosis or clubbing. PSYCH: Cooperative. Disposition: - TO HOME OR SELFCARE Time spent for discharge: 32 minutes Core Measure Documentation - Palliative Care Palliative Care/ Comfort Measures: Not Applicable - Core Measures Any of the following diagnoses?: none Exam - Constitutional Vitals: Temp Pulse Resp BP Pulse Ox 99.8 F H 84 18 110/67 95 10/30/17 07:38 10/30/17 07:38 10/30/17 12:24 10/30/17 07:38 10/30/17 07:38 Plan Activity: advance as tolerated Weight Bearing Status: Weight Bear as Tolerated Diet: low fat, low salt Follow up with: SYD ASENCIO MD [Primary Care Provider] - 7 Days Prescriptions: Cephalexin [Keflex] 500 mg PO Q8HR #15 cap Oxycodone HCl/Acetaminophen [Percocet 10/325 mg] 1 each PO Q6HR PRN #10 tablet PRN Reason: Pain
[2017-10-30 15:42] VITALS: BP 104/67
== END 2017-10-30 17:25 | disposition home or self-care (01) | DRG 694 ==
LOC: ED 19:33 → 3A 22:56
PROVIDERS: ADMIT Internal Medicine; ATTEND Internal Medicine
DX: N13.30 Unspecified hydronephrosis (principal); R65.10 Systemic inflammatory response syndrome (SIRS) of non-infectious origin without acute organ dysfunction; K21.9 Gastro-esophageal reflux disease without esophagitis; F17.200 Nicotine dependence, unspecified, uncomplicated
CPT/HCPCS: 36415; 71045; 74176; 80048; 80053; 81001; 81025; 82140; 82805; 85007; 85025; 85610; 87040; 87086; 93005; 93010; 96361; 96372; 96374; 96375; J1170; J1644; J1885; J2405; J2543; J7040